=== PATIENT | female | born 1960 | race American Indian/Alaskan Native ===

== ENCOUNTER 2018-03-09 07:32 | Emergency (ER) | payer MEDICAID ==
[2018-03-09 08:23] VITALS: BP 161/84
[2018-03-09] MEDS ORDERED: DUONEB *Not for PRN Use IH ONE (09:34)
[2018-03-09] MEDS ORDERED: DELTASONE PO ONE (09:35)
--- NOTE | 2018-03-09 09:35 | Emergency Department Report ---
Minor Respiratory - HPI Chief Complaint: Sore Throat Stated Complaint: COLD Time Seen by Provider: 03/09/18 09:29 Duration: 3 Days Pain Location: Chest Severity: mild Minor Respiratory: Yes Able to Tolerate Fluids, No Rhinorrhea, No Sore Throat, No Ear Pain, No Cough, No Sick Contacts, No Hemoptysis, No Chest Pain, No Shortness of Breath, No Fever Other History: asthma w wheezing last few days. no fever. no purulent sputum ED Review of Systems ROS: Stated complaint: COLD Other details as noted in HPI Comment: All other systems reviewed and negative Constitutional: denies: chills, fever Eyes: denies: eye pain ENT: denies: ear pain, throat pain, dental pain, hearing loss, epistaxis Respiratory: cough. denies: orthopnea Cardiovascular: denies: chest pain, dyspnea on exertion Endocrine: denies: intolerance to cold, intolerance to heat Gastrointestinal: denies: abdominal pain, vomiting Genitourinary: denies: dysuria Musculoskeletal: denies: back pain Skin: denies: rash Neurological: denies: headache Psychiatric: denies: anxiety Hematological/Lymphatic: denies: easy bleeding ED Past Medical Hx - Past Medical History Hx Hypertension: Yes Hx CVA: Yes Additional medical history: asthma, non smoker - Surgical History Past Surgical History?: Yes Additional Surgical History: TRIPLE BYPASS - Family History Family history: no significant - Social History Smoking Status: Never Smoker Substance Use Type: Marijuana - Medications Home Medications: Home Medications Medication Instructions Recorded Confirmed Last Taken Type Benzonatate [Tessalon Perles] 100 mg PO Q8HR PRN #20 capsule 03/09/18 Unknown Rx Fluticasone [Flonase] 1 spray NS QDAY #1 bottle 03/09/18 Unknown Rx predniSONE [Deltasone] 50 mg PO QDAY #5 tab 03/09/18 Unknown Rx Minor Respiratory Exam - Exam General: Vital signs noted. No distress. Alert and acting appropriately. HEENT: Yes Moist Mucous Membranes, No Pharyngeal Erythema, No Pharyngeal Exudates, No Rhinorrhea, No Conjuctival Injection, No Frontal Tenderness, No Maxillary Tenderness Ear: Neither TM Bulge, Neither TM Erythema, Neither EAC Pain, Neither EAC Discharge Neck: Yes Supple, No Adenopathy Lungs: Yes Good Air Exchange, Yes Wheezes (b bases), No Ronchi, No Stridor, No Cough, No Labored Respirations, No Retractions, No Use of Accessory Muscles, No Other Abnormal Lung Sounds Heart: Yes Regular, No Murmur Abdomen: Yes Normal Bowel Sounds, No Tenderness, No Peritoneal Signs Skin: No Rash, No Edema Neurologic: Alert and oriented, no deficits. Musculoskeletal: Unremarkable. ED Course Vital Signs 03/09/18 08:05 Temperature 98.5 F Pulse Rate 57 L Respiratory 20 Rate Blood Pressure 161/84 O2 Sat by Pulse 98 Oximetry ED Medical Decision Making - Radiology Data Radiology results: report reviewed, image reviewed - Medical Decision Making no sputum no fever cough w wheezing asthma season change ambulatory - Differential Diagnosis asthma ae v pna Critical care attestation.: If time is entered above; I have spent that time in minutes in the direct care of this critically ill patient, excluding procedure time. ED Disposition Clinical Impression: Asthma Disposition: - TO HOME OR SELFCARE Is pt being admited?: No Does the pt Need Aspirin: No Condition: Stable Instructions: Asthma (ED) Additional Instructions: hydrate well use your home inhalers meds as ordered today follow up with pcp end of week to be sure you are responding Prescriptions: Benzonatate [Tessalon Perles] 100 mg PO Q8HR PRN #20 capsule PRN Reason: Cough Fluticasone [Flonase] 1 spray NS QDAY #1 bottle predniSONE [Deltasone] 50 mg PO QDAY #5 tab Referrals: PRIMARY CARE, [Primary Care Provider] - 3-5 Days Time of Disposition: 10:23
--- NOTE | 2018-03-09 17:09 | XRay Report ---
FINAL REPORT EXAM: XR CHEST ROUTINE 2V HISTORY: sob TECHNIQUE: PA and lateral views of the chest Comparison: None FINDINGS: There is platelike atelectasis or scar formation in the right lateral lung base. There is no evidence of focal infiltrate, pneumothorax or pleural fluid collection. The cardiac silhouette is enlarged with evidence of previous CABG procedure. The thoracic aorta is mildly tortuous with atherosclerotic vascular calcification. The bony structures are notable for median sternotomy wires. IMPRESSION: 1. No evidence of an acute pulmonary process. 2. Enlarged cardiac silhouette with evidence of previous CABG procedure.
== END 2018-03-09 11:38 | disposition home or self-care (01) ==
LOC: ED 07:32
DX: J45.909 Unspecified asthma, uncomplicated (principal); F12.10 Cannabis abuse, uncomplicated; I10 Essential (primary) hypertension; Z86.73 Personal history of transient ischemic attack (TIA), and cerebral infarction without residual deficits
CPT/HCPCS: 71046; 94640; 99283; J7512

== ENCOUNTER 2019-02-28 17:25 | Emergency (ER) | payer MEDICAID ==
--- NOTE | 2019-02-28 17:55 | Emergency Department Report ---
Blank Doc - Documentation Documentation: 58-year-old female that presents with earache and cough. This initial assessment/diagnostic orders/clinical plan/treatment(s) is/are subject to change based on patient's health status, clinical progression and re- assessment by fellow clinical providers in the ED. Further treatment and workup at subsequent clinical providers discretion. Patient/guardians urged not to elope from the ED as their condition may be serious if not clinically assessed and managed. Initial orders include: 1- Patient sent to [facility] for further evaluation and treatment 2- CXR
--- NOTE | 2019-02-28 18:53 | XRay Report ---
CHEST 2 VIEWS INDICATION / CLINICAL INFORMATION: cough. COMPARISON: 03/09/2018 FINDINGS: SUPPORT DEVICES: None. HEART / MEDIASTINUM: Changes of median sternotomy are again noted LUNGS / PLEURA: There are mild linear parenchymal opacities in both lung bases characteristic of atel ectasis or scar. .No pneumothorax. ADDITIONAL FINDINGS: No significant additional findings. IMPRESSION: 1. There is mild linear atelectasis or scar in the lung bases. The upper lung zones are clear. Signer Name: Raymon Irizarry MD Signed: 02/28/2019 6:49 PM Workstation Name: [id number]
[2019-02-28] MEDS ORDERED: DOCUSATE SODIUM 100 MG/10 ML ORAL LIQD OT ONE (22:22)
--- NOTE | 2019-02-28 23:57 | Emergency Department Report ---
- General Chief Complaint: Upper Respiratory Infection Stated Complaint: EARACHE/COUGH Time Seen by Provider: 02/28/19 17:55 Source: patient Mode of arrival: Ambulatory Limitations: No Limitations - History of Present Illness Initial Comments: 58-year-old female with a past medical history CVA, hypertension, asthma, triple bypass presents to the hospital complains of cough productive of yellow-green sputum 2 weeks, ear pain, and nasal congestion and watery eyes. Patient denies fever. She denies shortness of breath or chest pain. She is taking medication left over from her visit in February 2018 which include Tessalon Perles and Flomax. Pill bottles so that medication is . Patient is complaining of decreased hearing and has been using Cerumenex at home without improvement. She went to her schedule cardiology clinic evaluation at [place] prior to being seen here. - Related Data Previous Rx's Medication Instructions Recorded Last Taken Type predniSONE [Deltasone] 50 mg PO QDAY #5 tab 03/09/18 Unknown Rx Ciprofloxacin HCl [Ciprofloxacin 500 mg PO Q12H 7 Days #14 tab 04/17/18 Unknown Rx TAB] Benzonatate [Tessalon Perles] 100 mg PO Q8HR PRN #20 capsule 02/28/19 Unknown Rx Fluticasone [Flonase] 1 spray NS QDAY #1 bottle 02/28/19 Unknown Rx Allergies Allergy/AdvReac Type Severity Reaction Status Date / Time No Known Allergies Allergy Unverified 03/09/18 08:05 ED Review of Systems ROS: Stated complaint: EARACHE/COUGH Other details as noted in HPI Comment: All other systems reviewed and negative ED Past Medical Hx - Past Medical History Hx Hypertension: Yes Hx CVA: Yes Additional medical history: asthma, non smoker - Surgical History Additional Surgical History: TRIPLE BYPASS - Social History Smoking Status: Never Smoker Substance Use Type: Marijuana - Medications Home Medications: Home Medications Medication Instructions Recorded Confirmed Last Taken Type predniSONE [Deltasone] 50 mg PO QDAY #5 tab 03/09/18 Unknown Rx Ciprofloxacin HCl [Ciprofloxacin 500 mg PO Q12H 7 Days #14 tab 04/17/18 Unknown Rx TAB] Benzonatate [Tessalon Perles] 100 mg PO Q8HR PRN #20 capsule 02/28/19 Unknown Rx Fluticasone [Flonase] 1 spray NS QDAY #1 bottle 10/07/19 Unknown Rx ED Physical Exam - General Limitations: No Limitations - Other Other exam information: Gen.: No acute distress Head: Atraumatic Eyes: Normal appearance ENT: Moist mucous membranes, bilateral cerumen impaction Neck: Normal appearance, no posterior midline tenderness, no meningismus Chest: Clear to auscultation bilaterally Cardiovascular: Regular rate and rhythm Abdomen: Normal appearance, soft, nontender, no rebound or guarding, normal bowel sounds Back: Normal appearance, nontender Extremity: Full range of motion, normal appearance Neuro: Alert oriented 3, clear speech, no focal motor or sensory deficit Psychiatric: Appropriate Skin: No rash ED Course Vital Signs 02/28/19 02/28/19 17:47 17:48 Temperature 98.3 F Pulse Rate 105 H Respiratory 18 16 Rate Blood Pressure 112/65 O2 Sat by Pulse 99 Oximetry ED Medical Decision Making - Radiology Data Radiology results: report reviewed (cxr: atelectasis, no infiltrate) - Medical Decision Making Patient was treated with Colace in her ear canals with irrigation. Patient reports feeling better but continues to have wax in her ear and TM is not visualized. Patient has a history of cerumen impaction. Follow-up advised. Chest x-ray without infiltrate. Afebrile in the ED without distress. Patient discharged with symptomatic treatment for suspected URI symptoms. - Differential Diagnosis pneumonia, viral syndrome, bronchitis, cerumen impaction, otitis media Critical Care Time: No Critical care attestation.: If time is entered above; I have spent that time in minutes in the direct care of this critically ill patient, excluding procedure time. ED Disposition Clinical Impression: URI (upper respiratory infection), Bilateral impacted cerumen Disposition: - TO HOME OR SELFCARE Is pt being admited?: No Does the pt Need Aspirin: No Condition: Stable Instructions: Triethanolamine Polypeptide Oleate (Into the ear), Cerumen Impaction (ED), Upper Respiratory Infection (ED) Additional Instructions: Take the medication as prescribed. Follow-up with your doctor or with the doctor/clinic provided. Return if symptoms worsen as indicated by your discharge instructions. Use over the counter Cerumex to loosen ear wax. Prescriptions: Fluticasone [Flonase] 1 spray NS QDAY #1 bottle Benzonatate [Tessalon Perles] 100 mg PO Q8HR PRN #20 capsule PRN Reason: Cough Referrals: PRIMARY CARE, [Primary Care Provider] - 3-5 Days [facility] [place] [Provider Group] - 3-5 Days Time of Disposition: 23:56
[2019-03-01 00:34] VITALS: BP 128/76
== END 2019-03-01 00:36 | disposition home or self-care (01) ==
LOC: ED 17:25
DX: J06.9 Acute upper respiratory infection, unspecified (principal); H61.23 Impacted cerumen, bilateral; I10 Essential (primary) hypertension; J45.909 Unspecified asthma, uncomplicated; F12.10 Cannabis abuse, uncomplicated; Z86.73 Personal history of transient ischemic attack (TIA), and cerebral infarction without residual deficits; Z95.1 Presence of aortocoronary bypass graft; Z79.899 Other long term (current) drug therapy
CPT/HCPCS: 71046; 99283

== ENCOUNTER 2019-05-02 10:24 | Emergency (ER) | payer MEDICAID ==
[2019-05-02 11:37] VITALS: BP 131/83
--- NOTE | 2019-05-02 11:37 | Emergency Department Report ---
Blank Doc - Documentation Documentation: 58-year-old female that presents with right ankle pain s/p fall. This initial assessment/diagnostic orders/clinical plan/treatment(s) is/are subject to change based on patient's health status, clinical progression and re- assessment by fellow clinical providers in the ED. Further treatment and workup at subsequent clinical providers discretion. Patient/guardians urged not to elope from the ED as their condition may be serious if not clinically assessed and managed. Initial orders include: 1- Patient sent to [facility] for further evaluation and treatment 2- xrays
--- NOTE | 2019-05-02 12:13 | XRay Report ---
LEFT ANKLE 3 VIEWS INDICATION / CLINICAL INFORMATION: ankle pain COMPARISON: None available. FINDINGS: BONES / JOINT(S): No acute fracture or subluxation. No significant arthritis. SOFT TISSUES: There is soft tissue swelling. Vascular calcifications are noted ADDITIONAL FINDINGS: None. Signer Name: Raymon Irizarry MD Signed: 05/02/2019 12:09 PM Workstation Name: [id number]
--- NOTE | 2019-05-02 14:01 | Emergency Department Report ---
ED Fall HPI - General Chief Complaint: Extremity Injury, Lower Stated Complaint: RT LEG/RT ANKLE SWELLING/PAIN Time Seen by Provider: 05/02/19 11:35 Source: patient Mode of arrival: Ambulatory - History of Present Illness Initial Comments: 58-year-old female patient complains of right ankle pain after trip and fall times yesterday. She denies any head injury or loss of consciousness. She states her lateral ankle is worse than the medial and she rates her pain as a 9/10 in severity. She denies any loss sensation into the foot -: Sudden Fall Witnessed: yes, by family Place Fall Occurred: home Loss of Consciousness: none Prolonged Down Time?: no Symptoms Prior to Fall: none Location - Extremities: Right: Ankle Associated Symptoms: denies - Related Data Previous Rx's Medication Instructions Recorded Last Taken Type predniSONE [Deltasone] 50 mg PO QDAY #5 tab 03/09/18 Unknown Rx Ciprofloxacin HCl [Ciprofloxacin 500 mg PO Q12H 7 Days #14 tab 04/17/18 Unknown Rx TAB] Benzonatate [Tessalon Perles] 100 mg PO Q8HR PRN #20 capsule 02/28/19 Unknown Rx Fluticasone [Flonase] 1 spray NS QDAY #1 bottle 02/28/19 Unknown Rx Naproxen [EC-Naprosyn] 500 mg PO BID PRN #14 tablet. 05/02/19 Unknown Rx Allergies Allergy/AdvReac Type Severity Reaction Status Date / Time No Known Allergies Allergy Unverified 03/09/18 08:05 ED Review of Systems ROS: Stated complaint: RT LEG/RT ANKLE SWELLING/PAIN Other details as noted in HPI Comment: All other systems reviewed and negative Musculoskeletal: as per HPI ED Past Medical Hx - Past Medical History Previous Medical History?: Yes Hx Hypertension: Yes Hx CVA: Yes Additional medical history: asthma, non smoker - Surgical History Past Surgical History?: Yes Additional Surgical History: TRIPLE BYPASS - Social History Smoking Status: Never Smoker Substance Use Type: None - Medications Home Medications: Home Medications Medication Instructions Recorded Confirmed Last Taken Type predniSONE [Deltasone] 50 mg PO QDAY #5 tab 03/09/18 Unknown Rx Ciprofloxacin HCl [Ciprofloxacin 500 mg PO Q12H 7 Days #14 tab 04/17/18 Unknown Rx TAB] Benzonatate [Tessalon Perles] 100 mg PO Q8HR PRN #20 capsule 02/28/19 Unknown Rx Fluticasone [Flonase] 1 spray NS QDAY #1 bottle 02/28/19 Unknown Rx Naproxen [EC-Naprosyn] 500 mg PO BID PRN #14 tablet. 05/02/19 Unknown Rx ED Physical Exam - General Limitations: No Limitations General appearance: alert, in no apparent distress - Head Head exam: Present: atraumatic, normocephalic - Eye Eye exam: Present: normal appearance - Neck Neck exam: Present: full ROM. Absent: tenderness - Respiratory Respiratory exam: Absent: respiratory distress - Cardiovascular Cardiovascular Exam: Present: regular rate, normal rhythm - Expanded Lower Extremity Exam Right Ankle exam: Present: tenderness (lateral ankle), swelling. Absent: abrasion, laceration, ecchymosis, deformity, dislocation, erythema Foot/Toe exam: Present: normal inspection, full ROM. Absent: tenderness, swelling, abrasion - Neurological Exam Neurological exam: Present: alert, oriented X3 - Psychiatric Psychiatric exam: Present: normal affect, normal mood - Skin Skin exam: Present: warm, dry, intact, normal color. Absent: rash ED Course Vital Signs 05/02/19 11:36 Temperature 98.5 F Pulse Rate 95 H Respiratory 18 Rate Blood Pressure 131/83 O2 Sat by Pulse 100 Oximetry ED Medical Decision Making - Radiology Data Radiology results: report reviewed Right ankle x-ray shows soft tissue swelling without acute bony abnormalities - Medical Decision Making Patient here with right ankle pain after a trip and fall yesterday. She denies any preceding dizziness, headache, chest pain, or trouble breathing and states the fall was mechanical. X-rays negative for fracture, however shows soft tissue swelling. Patient to discharge home with instructions for rice method, crutches, and orthopedic follow-up as needed. Discussed strict return precautions in detail with patient and patient's friend who both state understanding. Critical care attestation.: If time is entered above; I have spent that time in minutes in the direct care of this critically ill patient, excluding procedure time. ED Disposition Clinical Impression: Right ankle sprain Qualifiers: Encounter type: initial encounter Involved ligament of ankle: other ligament Qualified Code(s): S93.491A - Sprain of other ligament of right ankle, initial encounter Disposition: TO HOME OR SELFCARE Is pt being admited?: No Condition: Stable Instructions: Ankle Sprain (ED) Prescriptions: Naproxen [EC-Naprosyn] 500 mg PO BID PRN #14 tablet. PRYamile Reason: Pain , Severe (7-10) Referrals: SUHA SHARPE MD [Staff Physician] - 3-5 Days
[2019-05-02] MEDS ORDERED: HYDROcodone/ACETAMINOPHEN 5-325 MG TAB PO ONE (14:15)
== END 2019-05-02 15:30 | disposition home or self-care (01) ==
LOC: ED 10:24
DX: S93.401A Sprain of unspecified ligament of right ankle, initial encounter (principal); I10 Essential (primary) hypertension; J45.909 Unspecified asthma, uncomplicated; Z86.73 Personal history of transient ischemic attack (TIA), and cerebral infarction without residual deficits; Z98.890 Other specified postprocedural states; Z79.899 Other long term (current) drug therapy; W19.XXXA Unspecified fall, initial encounter; Y93.89 Activity, other specified; Y92.098 Other place in other non-institutional residence as the place of occurrence of the external cause; Y99.8 Other external cause status